=== PATIENT | female | born 1945 | race Caucasian/White ===

== ENCOUNTER 2016-12-31 19:33 | Emergency (ER) | payer MEDICARE, OTHER ==
[2016-12-31] MEDS ORDERED: predniSONE TAB* 20 MG PO ONE (23:29)
[2016-12-31] MEDS ORDERED: hydrOXYzine HCL TAB* 50 MG PO ONE (23:30)
[2016-12-31] MEDS ORDERED: Triamcinolone 0.5% OINT * 15 GM TUBE TOPICAL SCH (23:51)
[2017-01-01 00:05] VITALS: BP 159/69
[2017-01-01] MEDS ORDERED: Triamcinolone 0.5% OINT * 15 GM TUBE TOPICAL SCH (09:00)
--- NOTE | 2017-01-01 15:11 | UC ---
Skin Complaint HPI - HPI Summary HPI Summary: Patient arrives with CC of diffuse hives with pruritis x1 day. Hives are mainly located around the beltline and bilateral arms. She states she had them this morning and they spontaneously went away throughout the day. Denies changes of soap, laundry detergents, foods or outdoor activities. She uses all hypoallergenic products and is very conscientious of additives. She is allergic to benadryl. She comes today d/t not being able to sleep with the severe pruritus. Denies airway compromise or breathing difficulties. She denies any known allergies. - History of Current Complaint Chief Complaint: EDRashSkinAbscess Time Seen by Provider: 12/31/16 23:14 Stated Complaint: RASH/POSS ALLERGIC REACTION Hx Obtained From: Patient ?: No Onset/Duration: Sudden Onset Skin Exposure Onset/Duration: Hours Ago Timing: Intermittent Episodes Lasting: - several hours Pain Intensity: 0 Pain Scale Used: 0-10 Numeric Location: Diffuse Aggravating: Clothing Alleviating: Nothing Related History: Extremes of Age - Allergy/Home Medications Allergies/Adverse Reactions: Allergies Allergy/AdvReac Type Severity Reaction Status Date / Time Diphenhydramine Allergy paraddoxical Verified 12/31/16 19:39 [From Benadryl] reaction novacaine AdvReac Unknown Unknown Uncoded 12/31/16 19:39 Reaction Details Review of Systems Constitutional: Negative Skin: Rash - hives around beltline and bilateral arms Respiratory: Negative Cardiovascular: Negative Neurovascular: Negative Musculoskeletal: Negative Psychological: Negative All Other Systems Reviewed And Are Negative: Yes PMH/Surg Hx/FS Hx/Imm Hx Previously Healthy: Yes Cancer History Of: Denies: Breast Cancer - Surgical History Surgical History: Yes Surgery Procedure, Year, and Place: hysterectomy - Family History Known Family History: Positive: Unknown - Social History Occupation: Retired Lives: With Family Alcohol Use: None Substance Use Type: None Smoking Status (MU): Never Smoked Tobacco Have You Smoked in the Last Year: No Physical Exam Triage Information Reviewed: Yes Appearance: Well-Appearing, No Pain Distress, Well-Nourished Vital Signs: Initial Vital Signs Temp 99.2 F 12/31/16 19:39 Pulse 84 12/31/16 19:39 Resp 18 12/31/16 19:39 BP 147/69 12/31/16 19:39 Pulse Ox 99 12/31/16 19:39 Vital Signs Reviewed: Yes Eye Exam: Normal Eyes: Positive: Conjunctiva Clear ENT: Positive: Normal ENT inspection, Pharynx normal Dental Exam: Normal Neck exam: Normal Neck: Positive: Supple, Nontender, No Lymphadenopathy Respiratory Exam: Normal Respiratory: Positive: Chest non-tender, Lungs clear Cardiovascular Exam: Normal Cardiovascular: Positive: RRR Musculoskeletal Exam: Normal Neurological Exam: Normal Psychological Exam: Normal Psychological: Positive: Normal Response To Family Skin: Positive: Other - hives around beltline and bilateral arms Course/Dx - Course Course Of Treatment: Patient allergic to benadryl. Educated patient on treatment options. Given steroids for 4 days, hydroxazine and antihistamine ointment. Patient will follow up if symptoms continue and will return immiedately if SOB occurs - Differential Diagnoses - Skin Complaint Differential Diagnoses: Allergic Reaction, Contact Dermatitis, Drug Rash, Urticaria - Diagnoses Provider Diagnoses: urticaria/hives Discharge - Discharge Plan Condition: Stable Disposition: HOME Prescriptions: hydrOXYzine HCL TAB* [Atarax TAB*] 25 mg PO TID PRN #10 tab PRN Reason: Agitation predniSONE TAB* [Deltasone TAB*] 40 mg PO DAILY #6 tab Patient Education Materials: Hydroxyzine (By mouth), Urticaria (ED) Referrals: Kishore Dominguez MD [Primary Care Provider] - Additional Instructions: Take 40mg Prednisone on day 1 and day 2. Take 20mg Prednisone on day 3 and day 4. Take Hydroxyzine for itching and swelling. You may take this medication up to 3 times daily. Ointment to the area as needed for itchiness. If symptoms do not resolve with this regimen, please come back to ED for further evaluation. If you develop breathing symptoms, shortness of breath - come back to ED immediately.
--- NOTE | 2017-03-30 18:33 | PN ---
Progress Note - Progress Note Note: Constitutional: The patient denies fever, [place]. HEENT: Head: The patient denies headaches or dizziness. Eyes: The patient denies diplopia, blurry vision, eye pain, eye discharge, photophobia. Throat: The patient denies sore throats or hoarseness. Cardiovascular: The patient denies chest pain, palpitations, syncope, night cramps, or orthostasis. Respiratory: The patient denies cough, sputum production, hemoptysis, dyspnea, wheezing. Gastrointestinal: The patient denies odynophagia, dysphagia. Muscles: The patient denies myalgia, strain or weakness. Joints: The patient denies arthralgia and/or arthritis. Neurologic: The patient denies headache, loss of consciousness, or seizure.
== END 2017-01-01 00:02 | disposition home or self-care (01) ==
LOC: ED 19:33
DX: L50.9 Urticaria, unspecified (principal)
CPT/HCPCS: 99282; A9270-GY; J7512

== ENCOUNTER 2019-06-16 15:14 | Inpatient (IN) | payer MEDICARE, OTHER ==
[2019-06-16 17:16] LABS: ABS Eosinophils 0.1 10^3/ul (0-0.6); ABS Lymphocytes 0.8 10^3/ul (1.0-4.8); ABS Monocytes 0.5 10^3/ul (0-0.8); ABS Neutrophils 4.5 10^3/ul (1.5-7.7); Eosinophil % 1.3 %; Hematocrit 46 % (35-47); Hemoglobin 15.1 g/dL (12.0-16.0); Lymphocyte % 13.3 %; Mean Corpuscular HGB Conc 33 g/dL (31-36); Mean Corpuscular Hemoglobin 31 pg (27-31); Mean Corpuscular Volume 93 fL (80-97); Mean Platelet Volume 8.6 fL (7.4-10.4); Nucleated Red Blood Cells % 0.1; Platelet Count 219 10^3/uL (150-450); Red Blood Count 4.91 10^6 /uL (3.70-4.87); Red Cell Distribution Width 13 % (10-15); White Blood Count 5.8 10^3/uL (3.5-10.8)
--- NOTE | 2019-06-16 17:24 | ED ---
Dizziness - HPI Summary HPI Summary: A 73 y/o female accompanied by her presents to [facility] with a chief complaint of being disoriented for the past three days. She reports dizziness/ lightheadedness and occasional nausea. She denies any SOB or CP and normally says that she has had an irregular heart rate that has been intermittent for many yeas. Per she is confused "all the time" which is abnormal for her. Per , she has not been eating as well as normal. No falls at home but he thinks she has been walking w an unsteady gait. Denies infectious symptoms. Patient is normally very active walking up 2 miles a day. She denies a Hx of DM or HTN. - History Of Current Complaint Chief Complaint: EDDizziness Stated Complaint: DISORIENTED PER PT Time Seen by Provider: 06/16/19 17:03 Hx Obtained From: Patient, Family/Farmer General Timing: Constant Severity Initially: Mild Severity Currently: Mild Character: Dizzy Aggravating Factor(s): Nothing Alleviating Factor(s): Nothing Associated Signs And Symptoms: Positive: Nausea, Other: - disoriented. Negative : Chest Pain, SOB, Fever - Allergies/Home Medications Allergies/Adverse Reactions: Allergies Allergy/AdvReac Type Severity Reaction Status Date / Time diphenhydramine Allergy Unknown Verified 06/16/19 15:21 [From Benadryl] Reaction Details procaine [From Novocain] AdvReac Unknown Verified 06/16/19 19:34 Reaction Details PMH/Surg Hx/FS Hx/Imm Hx Endocrine/Hematology History: Denies: Hx Diabetes Cardiovascular History: Denies: Hx Hypertension Comment Only: Other Cardiovascular Problems/Disorders - hx murmur - Cancer History Hx Chemotherapy: No Hx Radiation Therapy: No - Surgical History Surgery Procedure, Year, and Place: hysterectomy Infectious Disease History: No Infectious Disease History: Denies: Traveled Outside the [place] in Last 30 Days - Family History Known Family History: Positive: Unknown - Social History Alcohol Use: None Substance Use Type: Reports: None Smoking Status (MU): Never Smoked Tobacco Have You Smoked in the Last Year: No Review of Systems Negative: Fever Negative: Chest Pain Negative: Shortness Of Breath Positive: Nausea Neurological: Other - positive: dizziness, disoriented, unsteady gait All Other Systems Reviewed And Are Negative: Yes Physical Exam - Summary Physical Exam Summary: Constitutional: Ederly female, NAD Skin: Warm, Dry HENT: Normocephalic; Atraumatic Eyes: Conjunctiva normal Neck: Musculoskeletal ROM normal neck. (-) JVD, (-) Stridor, (-) Nuchal rigidity Cardio: Rhythm regular, rate normal, Heart sounds normal; Intact distal pulses; Radial pulses are 2+ and symmetric. (-) Murmur Pulmonary/Chest wall: Effort normal. (-) Respiratory distress, (-) Wheezes, (-) Rales Abd: Soft, (-) tenderness, (-) Distension, (-) Guarding, (-) Rebound Musculoskeletal: (-) Edema Lymph: (-) Cervical adenopathy Neuro: Alert, Oriented to person and place, not time. CN 2-12 grossly intact. strength 5/5 BUE BLE. SILT. No dysmetria. Gait slow slightly unsteady Psych: Mood and affect Normal Triage Information Reviewed: Yes Vital Signs On Initial Exam: Initial Vitals Temp Pulse Resp BP Pulse Ox 98.2 F 79 18 145/81 96 06/16/19 15:17 06/16/19 15:17 06/16/19 15:17 06/16/19 15:17 06/16/19 15:17 Vital Signs Reviewed: Yes - Pinckney Coma Scale Best Eye Response: 4 - Spontaneous Best Motor Response: 6 - Obeys Commands Best Verbal Response: 4 - Confused Coma Scale Total: 14 Diagnostics - Vital Signs Vital Signs Temp Pulse Resp BP Pulse Ox 06/16/19 17:04 63 13 200/84 99 06/16/19 17:03 47 24 97 06/16/19 15:17 98.2 F 79 18 145/81 96 - Laboratory Lab Results: Lab Results 06/16/19 Range/Units 17:09 WBC 5.8 (3.5-10.8) 10^3/uL RBC 4.91 H (3.70-4.87) 10^6 /uL Hgb 15.1 (12.0-16.0) g/dL Hct 46 (35-47) % MCV 93 (80-97) fL MCH 31 (27-31) pg MCHC 33 (31-36) g/dL RDW 13 (10-15) % Plt Count 219 (150-450) 10^3/uL MPV 8.6 (7.4-10.4) fL Neut % (Auto) 76.9 % Lymph % (Auto) 13.3 % Grainger % (Auto) 8.0 % Eos % (Auto) 1.3 % Baso % (Auto) 0.5 % Absolute Neuts (auto) 4.5 (1.5-7.7) 10^3/ul Absolute Lymphs (auto) 0.8 L (1.0-4.8) 10^3/ul Absolute Monos (auto) 0.5 (0-0.8) 10^3/ul Absolute Eos (auto) 0.1 (0-0.6) 10^3/ul Absolute Basos (auto) 0.0 (0-0.2) 10^3/ul Absolute Nucleated RBC 0.0 10^3/ul Nucleated RBC % 0.1 Result Diagrams: 06/17/19 05:15 06/17/19 05:15 Lab Statement: Any lab studies that have been ordered have been reviewed, and results considered in the medical decision making process. - Radiology CXR Radiology Interpretation Completed By: Radiologist Summary of Radiographic Findings: Stigmata of obstructive lung disease. No acute pulmonary or cardiac process evident. ED physician has reviewed this imaging report. - CT Brain CT Interpretation Completed By: Radiologist Summary of CT Findings: 1. No acute intracranial pathology. 2. Other chronic findings, as above. ED physician has reviewed this imaging report. - EKG 17:47 Cardiac Rate: NL - 72 bpm EKG Rhythm: Sinus Rhythm Summary of EKG Findings: EKG at 17:42 reveals normal sinus rhythm at 72 bpm, LBBB. 16:42 Cardiac Rate: NL - 64 bpm EKG Rhythm: Sinus Rhythm Summary of EKG Findings: EKG at 16:42 reveals normal sinus rhythm at 64 bpm, LBBB. Re-Evaluation - Re-Evaluation First Eval Comment: CT negative, patient having episodes of tachycardia on the monitor, we' ll discuss with cardiology. Plan to admit to medicine. Dizzy Course/Dx - Course Course Of Treatment: 73 y/o F p/w AMS and dizziness. Given that this patient has normal O2, BG, hypoxia and hypoglycemia/DKA less likely. DDx still includes : Arrhythmia, infectious symptoms electrolyte abnl, thyroid issues, infection/ sepsis, uremia, trauma, encephalopathy/encephalitis, psych, stroke. Will check labs, head ct, urine, ekg, cxr. Reassess. Dizziness ddx: Differential diagnosis includes: Cardiac causes - EKG with a left bundle branch block unsure if new, check troponin. Reported history if arrhythmia but she is not quite sure what it is. Electrolyte disturbances - will check CMP. Anemia - will check CBC. Posterior stroke/tia - will get CT head, if remaining workup negative consider MRI. No dysmetria neuro exam however does have slightly unsteady gait. Vertigo: differential includes Menniere's - no tinnitis, not lasting hours, BPPV - not positional or lasting minutes, labyrinthitis - no h/o infectious symptoms, no tinnitus - Diagnoses Provider Diagnoses: Dizziness, Altered mental status - Provider Notifications Discussed Care Of Patient With: Gino Quesada Time Discussed With Above Provider: 17:50 Instructed by Provider To: Other - D/w Dr. Quesada re: episodes of tachycardia. He looked at the stirp and thinks that it is probably more constent with an atrial tachycardia Discharge - Sign-Out/Discharge Documenting (check all that apply): Patient Departure - admit Patient Received Moderate/Deep Sedation with Procedure: No - Discharge Plan Condition: Fair Disposition: ADMITTED TO [facility] - Billing Disposition and Condition Condition: FAIR Disposition: Admitted to [facility] - Attestation Statements Document Initiated by Chas: Yes Documenting Scribe: Neri Reveles Provider For Whom Chas is Documenting (Include Credential): Alek Raya MD Scribe Attestation: I, Neri Reveles, scribed for Alek Raya MD on 06/17/19 at 1329. Scribe Documentation Reviewed: Yes Provider Attestation: The documentation as recorded by the Neri abad accurately reflects the service I personally performed and the decisions made by me, Alek Raya MD Status of Scribe Document: Viewed Consult Consult: At 18:[address] Khan, who accepted the patient for admission.
[2019-06-16 17:32] LABS: ALT 10 U/L (7-52); AST 22 U/L (13-39); Albumin 4.3 g/dL (3.2-5.2); Albumin/Globulin Ratio 1.5 (1-3); Alkaline Phosphatase 43 U/L (34-104); Anion Gap 8 mmol/L (2-11); BUN/Creatinine Ratio 15.6 (8-20); Blood Urea Nitrogen 15 mg/dL (6-24); CO2 Carbon Dioxide 26 mmol/L (22-32); Calcium 9.9 mg/dL (8.6-10.3); Chloride 107 mmol/L (101-111); EGFR African American 68.7 (>60); EGFR Non-African American 56.8 (>60); Globulin 2.9 g/dL (2-4); Glucose 103 mg/dL (70-100); Magnesium 2.1 mg/dL (1.9-2.7); Potassium 3.9 mmol/L (3.5-5.0); Sodium 141 mmol/L (135-145); Total Protein 7.2 g/dL (6.4-8.9)
[2019-06-16 17:34] LABS: Troponin I 0.01 ng/mL (<0.04)
[2019-06-16 17:57] LABS: TSH (Thyroid Stimulating Horm) 2.08 mcIU/mL (0.34-5.60)
[2019-06-16 18:52] LABS: Urine Appearance Clear; Urine Bacteria Absent (Absent); Urine Bilirubin Negative (Negative); Urine Blood Negative (Negative); Urine Color Yellow; Urine Glucose Negative (Negative); Urine Ketones 1+ (Negative); Urine Nitrite Negative (Negative); Urine Protein Negative (Negative); Urine Red Blood Cell Trace(0-2/hpf) (Absent); Urine Specific Gravity 1.012 (1.010-1.030); Urine Squamous Epithelial Cell Present (Absent); Urine Urobilinogen Negative (Negative); Urine White Blood Cell 1+(6-10/hpf) (Absent)
[2019-06-16] MEDS ORDERED: Acetaminophen TAB* 325 MG PO PRN (19:19)
[2019-06-16] MEDS ORDERED: Ondansetron INJ* 2 MG/ML VIAL IV PRN (19:19)
[2019-06-16 19:49] LABS: C Reactive Protein < 1.00 mg/L (<8.01)
[2019-06-16] MEDS ORDERED: amLODIPine TAB* 5 MG PO ONE (19:53)
[2019-06-16] MEDS ORDERED: NS 0.9% 1000 ML** 1,000 ML IV SCH (20:00)
[2019-06-16] MEDS ORDERED: Enoxaparin(*) 40 MG/0.4 ML SYR SUBCUT SCH (20:00)
--- NOTE | 2019-06-16 23:33 | HP ---
CC: Dr. Kishore Dominguez * ADMISSION HISTORY AND PHYSICAL: DATE OF ADMISSION: 06/16/19 PRIMARY CARE PROVIDER: Dr. Kishore Dominguez. MY ATTENDING WHILE IN THE HOSPITAL: Dr. Yaritza Yuen.* (DICTATED BY SHERI CAPPS) CHIEF COMPLAINT: Dizziness, malaise x3 days. HISTORY OF PRESENT ILLNESS: Ms. Avelar is a 73-year-old female with past medical history significant for mild cognitive impairment and borderline hypertension, who presents to the emergency department after she was feeling in her normal state of health Thursday evening and they will walk 2 miles, had normal appetite, and normal memory, which is severely limited in the short-term particularly for her at baseline and then on Thursday morning, she woke up, felt very fatigued, had no appetite, was unable to tolerate any more than sips of water, staggering around when attempting to walk and feeling she always needed to lie down. The patient never had episodes like this before. The patient had no fevers, chills, abdominal pain, diarrhea, pain with urination. The patient denied any vertigo, just felt unsteady on her feet and stated that she felt disoriented. All the history is from her that she remembers nothing from it. The patient has a history of irregular heart beat, but never diagnosed with any specific arrhythmia. The patient has no knowledge of having a left bundle-branch block. The patient has no chest pain except did not pass out. The patient had no palpitations. The patient did not improve over the course of the next 2 days. On the morning of 06/16/19, the patient's activated EMS. In the ambulance, the patient had a 12-beat run of an irregular rhythm with normal complexes for her, which was self limited. The patient was discovered to have a new left bundle- branch block. Her most recent telemetry monitoring was from an endoscopy in 2011, which showed narrow complexes without left bundle-branch block. The patient, of note, no tick bites, no new rashes, no particular joint pain. In the emergency department, the patient is feeling better, the patient feels hungry. The patient however does still have dizziness with ambulation. There is no increased frequency in urination, no changes in her vision, no headaches, no neck stiffness, no incontinence of urination. In the emergency department, the patient was found to have negative urine, relatively unremarkable vital signs, possibly consistent with mild dehydration and we were asked to consider the patient for admission to hospital due to altered mental status and dizziness. PAST MEDICAL HISTORY: Mild cognitive impairment, hypertension, left ankle avulsion fracture, right patellar fracture. PAST SURGICAL HISTORY: Hysterectomy and ankle surgery. MEDICATIONS: None. ALLERGIES: DEMEROL. FAMILY HISTORY: The patient's father of [place]. The patient's mother of cancer, unknown type. SOCIAL HISTORY: The patient never smoked, does not drink, does not use illicit drugs. The patient used to work in a daycare. The patient is and has 5 adopted children. REVIEW OF SYSTEMS: A 14-point review of systems was reviewed and is negative except as above in the HPI. PHYSICAL EXAMINATION GENERAL: The patient is a 73-year-old female, who appears stated age and sitting comfortably in bed, in no acute distress. VITAL SIGNS: At the time of evaluation, temperature 98.2, pulse rate 50, respiratory rate 12, oxygen saturation 98%, blood pressure 183/96. HEENT: Head: Normocephalic, atraumatic. Sclerae anicteric. No conjunctival injection. Nasal mucosa moist. Oral mucosa moist. No pharyngeal erythema, discharge, or exudate. NECK: Supple, nontender. No lymphadenopathy. No carotid bruits auscultated. No JVD. RESPIRATORY: Clear to auscultation bilaterally. No wheezes, rales, or rhonchi. Good air exchange bilaterally. CARDIAC: Regular rate and rhythm. No clicks, murmurs, gallops, or rubs. Pulses are 2+ in the bilateral dorsalis pedis, posterior tibialis, and radial areas. ABDOMEN: Soft, nontender, nondistended. Bowel sounds present and normoactive in all 4 quadrants. No hepatosplenomegaly. No abdominal bruits auscultated. No hepatojugular reflux. GENITOURINARY: No suprapubic or CVA tenderness. NEURO: Possible very slight right-sided facial droop affecting the forehead, eye, and mouth. Cerebellar testing performed without difficulty. The patient has slight gait abnormality, wherein she takes a small step with her right foot and then enlarge with her left. The patient has a negative Romberg's sign, no drift, no nystagmus. [id number] performed without difficulty. Finger tap symmetrical. Strength preserved 5/5 in bilateral upper and lower extremities distally, proximally no definite sensation to light touch. Alert and oriented to self. PSYCHIATRIC: Pleasant and cooperative. SKIN: Clean, dry, and intact. No rash. DIAGNOSTIC STUDIES/LAB DATA: White blood cell count 5.8, hemoglobin 15.1, platelet count 219. Sodium 141, potassium 3.9, chloride 107, carbon dioxide 26 , BUN 15, creatinine 0.96, glucose 103, lactic acid 1.2, calcium 9.9, magnesium 2.1, bilirubin 0.6. AST 22, ALT 10, alkaline phosphatase 43. Troponin I 0.01. Total protein 7.2, albumin 4.3, globulin 2.9. TSH 2.08. Urine, yellow, clear, 1+ ketones, trace leukocyte esterase, 1+ white blood cells, squamous epithelial cells present, otherwise unremarkable. Studies: EKG shows left bundle-branch block. Normal sinus rhythm. Difficult to interpret ST segment elevation or depression. No P wave morphology. Possible left atrial enlargement. No previous exam to compare. Chest x-ray read as some mild obstructive lung disease, no acute cardiopulmonary disease. Brain CT read as no acute intracranial pathology, prominence of ventricles and sulci and/or cisterns likely associated to parenchymal volume loss, Stigmata of small vessel ischemic change. ASSESSMENT AND PLAN: Impression: Ms. Avelar is a 73-year-old female with past medical history significant for mild cognitive impairment and hypertension for which she is on no medications who presents to the emergency department with 3 days of malaise, disorientation, and dizziness. The patient will be admitted to the hospital for supportive care as well as TIA evaluation. 1. Disorientation, dizziness. This will be a markedly atypical pattern for a TIA, however, the patient has no discernible neurologic deficits on exam right now except for possible right-sided facial droop, which is very subtle and may not be of any clinical significance. The patient has new left bundle-branch block but no bradycardia. The patient is outdoors frequently and has nonspecific symptoms, which could be indicative of Lyme disease. A tick borne panel has been sent. An MRI will be done of patient's head. Echo will be done for a bubble study. The patient will not be started on any treatment at this time given the lack of definitive neurologic deficits. The patient's blood pressure is high. The patient will be started on blood pressure medications tonight as it has been 3 days since the onset of her symptoms. The patient is not eligible for any sort of TPA therapy at this time. Lipid profile and hemoglobin A1c will be checked. 2. Hypertension. Amlodipine as above. 3. Dementia. Supportive care. 4. FEN. The patient will have a regular unrestricted diet and have gentle fluids for probable dehydration given her poor oral intake. 5. Disposition: The patient is admitted for observation to the hospital. 6. DVT prophylaxis. Lovenox subcu. TIME SPENT: Approximately 60 minutes was spent on the admission of this patient , 30 of which was spent [id number] with the patient obtaining history and physical and discussing treatment plan. This plan was discussed with my attending, Dr. Yaritza Yuen, and she is in agreement. SHERI CAPPS [id number]/[facility] #: [id number] ROHINI
[2019-06-17 05:34] LABS: ABS Basophils 0.1 10^3/ul (0-0.2); ABS Eosinophils 0.2 10^3/ul (0-0.6); ABS Monocytes 0.6 10^3/ul (0-0.8); ABS Neutrophils 4.3 10^3/ul (1.5-7.7); Eosinophil % 2.5 %; Hematocrit 44 % (35-47); Hemoglobin 14.5 g/dL (12.0-16.0); Lymphocyte % 17.1 %; Mean Corpuscular HGB Conc 33 g/dL (31-36); Mean Corpuscular Hemoglobin 31 pg (27-31); Mean Corpuscular Volume 92 fL (80-97); Mean Platelet Volume 8.7 fL (7.4-10.4); Nucleated Red Blood Cells % 0.1; Platelet Count 212 10^3/uL (150-450); Red Blood Count 4.74 10^6 /uL (3.70-4.87); Red Cell Distribution Width 13 % (10-15); White Blood Count 6.1 10^3/uL (3.5-10.8)
[2019-06-17 05:56] LABS: Anion Gap 7 mmol/L (2-11); Blood Urea Nitrogen 15 mg/dL (6-24); C Reactive Protein < 1.00 mg/L (<8.01); CO2 Carbon Dioxide 27 mmol/L (22-32); Calcium 9.6 mg/dL (8.6-10.3); Chloride 107 mmol/L (101-111); Cholesterol 203 mg/dL; EGFR Non-African American 62.8 (>60); Glucose 96 mg/dL (70-100); HDL Cholesterol 53.8 mg/dL; LDL Cholesterol 135 mg/dL; Magnesium 2.1 mg/dL (1.9-2.7); Potassium 3.8 mmol/L (3.5-5.0); Sodium 141 mmol/L (135-145); Triglycerides 73 mg/dL
--- NOTE | 2019-06-17 11:29 | ECHO ---
*[facility]* [place] [address] Fax #: [phone] Transthoracic Echocardiogram Patient: Leta Avelar : 1945 Study Date: 06/17/2019 Age: 73 Gender: F HR: 57 bpm Height: 66 in /167.6 cm BSA: 1.66 m^2 Weight: 129.7 lb /59 kg BMI: 21 kg/m^2 *[place] Former: * Lamar Diaz [facility] *Referring Physician: * Kaleb Hair *Reading Physician: * Gino Quesada MD Indications: TIA. History: Left bundle branch block. Dementia. Risk factors: Hypertension. Conclusions Summary: - Left ventricle: The cavity size is normal. Wall thickness is mildly to moderately increased. Systolic function is normal. The estimated ejection fraction is 60-65%. Wall motion is normal; there are no regional wall motion abnormalities. - Right ventricle: The cavity size is normal. Systolic function is normal. Systolic pressure is within the normal range. - Ventricular septum: The interventricular septum appears dyssynchronous consistent with LBBB - Left atrium: The atrium is mildly dilated. - Atrial septum: A PFO is demonstrated by color Doppler and agitated saline contrast. - No signficant valvular abnormalities noted. Recommendations: No prior studies for comparsion at time of interpretation. Study data: Transthoracic echocardiogram. Procedure: Transthoracic echocardiography was performed. Image quality was fair. A bubble study was performed. Complete 2D, spectral Doppler, and color flow Doppler. Location: Bedside. Patient status: Inpatient. Patient room number: 438. Rhythm: Bradycardia. Findings Left ventricle: The cavity size is normal. Wall thickness is mildly to moderately increased. Systolic function is normal. The estimated ejection fraction is 60-65%. Wall motion is normal; there are no regional wall motion abnormalities. Doppler parameters are consistent with abnormal left ventricular relaxation (grade 1 diastolic dysfunction). Right ventricle: The cavity size is normal. Systolic function is normal. Systolic pressure is within the normal range. Ventricular septum: The interventricular septum appears dyssynchronous consistent with LBBB Left atrium: The atrium is mildly dilated. Right atrium: The atrium is normal in size. Atrial septum: There is a patent foramen ovale. A PFO is demonstrated by color Doppler and agitated saline contrast. Bubble study image 83. Mitral valve: The leaflets are mildly thickened. There is no evidence of stenosis. There is trace to mild regurgitation. Aortic valve: The valve is trileaflet. The leaflets are mildly thickened. There is no evidence of stenosis. There is mild regurgitation. Tricuspid valve: The leaflets are normal thickness. There is no evidence of stenosis. There is mild regurgitation. Pulmonic valve: The leaflets are normal thickness. There is no evidence of stenosis. There is trace regurgitation. Aorta: Ascending aorta: The ascending aorta is appears normal. The aortic root appears normal. The aortic arch appears normal. Pericardium: There is no significant pericardial effusion. Pulmonary arteries: The main pulmonary artery is normal-sized. Systolic pressure is within the normal range. Systemic veins: Inferior vena cava: The vessel is normal in size. There is (>= 50%) respiratory change in the IVC dimension. Measurements Left ventricle Value Ref Aortic valve Value Ref ISAI, LAX (L) 3.3 cm 3.8 - Keerthi diam, S (L) 1.6 cm 1.9 - 2.7 5.2 Peak v, S 1.39 m/sec --------- ESD, LAX 2.8 cm 2.2 - VTI, S 25.3 cm --------- 3.5 Mean grad, S 3.9 mm Hg --------- FS, LAX (L) 14 % 27 - 45 Peak grad, S 7.8 mm Hg --------- PW, ED, LAX (H) 1.2 cm 0.6 - LVOT/AV, VTI ratio 0.9 --------- 0.9 FARAZ, VTI 2.56 cm^2 --------- FS (L) 14 % 27 - 45 FARAZ, Vmax 2.49 cm^2 --------- PW, ED (H) 1.2 cm 0.6 - AR peak v 3.31 m/sec --------- 0.9 AR decel time 1931 ms --------- E', lat keerthi, TDI (L) 6.0 cm/sec >=10.0 AR PHT 560 ms --- ------ E/e', lat keerthi, TDI 10 -------- AR peak grad 44 mm Hg ------ --- LVOT Value Ref Mitral valve Value Ref Diam, S 1.98 cm -------- Peak E 0.59 m/sec --------- Area 3.1 cm^2 -------- Peak A 1.04 m/sec --------- Peak luca, S 1.15 m/sec -------- Decel time 275 ms --------- VTI, S 22.7 cm -------- Peak E/A ratio 0.57 --------- Peak grad, S 5 mm Hg -------- Mean grad, S 3 mm Hg -------- Pulmonic valve Value Ref Peak v, S 1.1 m/sec --------- Ventricular septum Value Ref Peak grad, S 4.8 mm Hg --------- IVS, ED (H) 1.2 cm 0.6 - 0.9 Tricuspid valve Value Ref TR peak v 2.3 m/sec <=2.8 Right ventricle Value Ref Peak RV-RA grad, S 21 mm Hg --------- AW thickness, ED (H) 0.6 cm 0.1 - 0.5 Aortic root Value Ref ISAI, LAX 4.2 cm -------- Root diam 2.9 cm <3.9 ISAI minor ax, A4C (H) 4.0 cm 1.9 - mid 3.5 Ascending aorta Value Ref Pressure, S 24 mm Hg -------- AAo AP diam, S 3.4 cm --------- AAo peak v 0.83 m/sec --------- Left atrium Value Ref LA ID 3.3 cm -------- Decending aorta Value Ref SI dim ES, LAX 3.3 cm -------- Chely peak luca 0.83 m/sec --------- ML dim, A4C 4.5 cm -------- SI dim, A4C 4.7 cm -------- Pulmonary artery Value Ref Vol, ES, 2-p 52 ml -------- Pressure, S 19.2 mm Hg --------- Vol/bsa, ES, 2-p 31 ml/m^2 16 - 34 Inferior vena cava Value Ref Right atrium Value Ref Diam 1.6 cm --------- SI dim, ES 4.0 cm 3.4 - 5.3 ML dim, ES, A4C 3.5 cm 2.6 - 4.4 SI dim, ES, A4C 4.2 cm 3.4 - 5.3 SI dim/bsa, ES, A4C 2.5 cm/m^2 1.9 - 3.1 Estimated RAP 3 mm Hg -------- Legend: (L) and (H) elana values outside specified reference range. Prepared and electronically signed by Gino Quesada MD 06/17/2019 10:54
--- NOTE | 2019-06-17 15:57 | PN ---
Subjective Date of Service: 06/17/19 Interval History: Pt is feeling better today than yesterday. She does not know if her has been in yet. She denies any pain or SOB. Objective Active Medications: Acetaminophen (Tylenol Tab*) 650 mg PO Q6H PRN PRN Reason: MILD PAIN or TEMP > 100.4 Enoxaparin Sodium (Lovenox(*)) 40 mg SUBCUT Q24H ANKUSH Last Admin: 06/16/19 21:33 Dose: Not Given Ondansetron HCl (Zofran Inj*) 4 mg IV Q6H PRN PRN Reason: NAUSEA Vital Signs - 8 hr 06/17/19 08:00 Respiratory 20 Rate Oxygen Devices in Use Now: None Appearance: Elderly female sitting up in bed, NAD Eyes: No Scleral Icterus Ears/Nose/Mouth/Throat: Mucous Membranes Moist Respiratory: Symmetrical Chest Expansion and Respiratory Effort, Clear to Auscultation Cardiovascular: NL Sounds; No Murmurs; No JVD, RRR, No Edema Abdominal: NL Sounds; No Tenderness; No Distention Extremities: No Clubbing, Cyanosis Skin: No Nodules or Sclerosis Neurological: - - slightly confused Result Diagrams: 06/17/19 05:15 06/17/19 05:15 Additional Lab and Data: Lab Results 06/16/19 Range/Units 17:09 WBC 5.8 (3.5-10.8) 10^3/uL RBC 4.91 H (3.70-4.87) 10^6 /uL Hgb 15.1 (12.0-16.0) g/dL Hct 46 (35-47) % MCV 93 (80-97) fL MCH 31 (27-31) pg MCHC 33 (31-36) g/dL RDW 13 (10-15) % Plt Count 219 (150-450) 10^3/uL MPV 8.6 (7.4-10.4) fL Neut % (Auto) 76.9 % Lymph % (Auto) 13.3 % [place] % (Auto) 8.0 % Eos % (Auto) 1.3 % Baso % (Auto) 0.5 % Absolute Neuts (auto) 4.5 (1.5-7.7) 10^3/ul Absolute Lymphs (auto) 0.8 L (1.0-4.8) 10^3/ul Absolute Monos (auto) 0.5 (0-0.8) 10^3/ul Absolute Eos (auto) 0.1 (0-0.6) 10^3/ul Absolute Basos (auto) 0.0 (0-0.2) 10^3/ul Absolute Nucleated RBC 0.0 10^3/ul Nucleated RBC % 0.1 Assess/Plan/Problems-Billing Ms Avelar is a 73 yo F who has a h/o HTN and mild cognitive impairment who presented to the ER with c/o dizziness and malaise x 3 days and was admitted for TIA work up. - Patient Problems (1) CVA (cerebral vascular accident) Current Visit: Yes Status: Acute Code(s): I63.9 - CEREBRAL INFARCTION, UNSPECIFIED SNOMED Code(s): 747888768 Comment: Pt has MRI c/w cardioembolic CVA. Pt has PFO on echo. Will get LE dopplers to r/o DVT. There is a high likelihood that she has amyloid angiopathy and because of this anticoagulation is contraindicated. ? if she should be on ASA alone but even this poses a risk of bleeding. Await further recommendations from Dr. Ramos. (2) Cerebral amyloid angiopathy Current Visit: Yes Status: Acute Code(s): E85.4 - ORGAN-LIMITED AMYLOIDOSIS ; I68.0 - CEREBRAL AMYLOID ANGIOPATHY SNOMED Code(s): 628733837 Comment: New dx based on MRI findings. (3) HTN (hypertension) Current Visit: Yes Status: Acute Code(s): I10 - ESSENTIAL (PRIMARY) HYPERTENSION SNOMED Code(s): 20780779 Comment: BP is under good control on amlodipine 5mg daily. (4) Mild cognitive impairment Current Visit: Yes Status: Acute Code(s): G31.84 - MILD COGNITIVE IMPAIRMENT , SO STATED SNOMED Code(s): 934966982 Comment: Pt is confused but unclear how close she is at baseline currently. (5) DVT prophylaxis Current Visit: Yes Status: Acute Code(s): Z29.9 - ENCOUNTER FOR PROPHYLACTIC MEASURES, UNSPECIFIED SNOMED Code(s): 722624779 Comment: SCDs (6) Full code status Current Visit: Yes Status: Acute Code(s): Z78.9 - OTHER SPECIFIED HEALTH STATUS SNOMED Code(s): 663501099
[2019-06-17] MEDS: Iohexol 350* (CONTRAST) 500 ML MDV IV ONE ×2 (16:59→17:39)
[2019-06-17] MEDS ORDERED: Atorvastatin* 10 MG TAB PO SCH (17:00)
[2019-06-17] MEDS: Aspirin 81 mg CHEW TAB* 81 MG TAB.CHEW PO SCH (17:56)
--- NOTE | 2019-06-17 19:03 | CONS ---
CC: Dr. Kishore Dominguez* CONSULTATION REPORT: DATE OF CONSULT: 06/17/19 DATE OF ADMISSION: 06/16/19 PRIMARY CARE PHYSICIAN: Dr. Kishore Dominguez. REASON FOR CONSULTATION: Stroke. HISTORY OF PRESENT ILLNESS: Ms. Avelar is a rustam 73-year-old female with a past medical history significant for dementia and hypertension who presents to the hospital with several day history of worsening mental status and dizziness. The patient is very active, normally walks daily over 2 miles. Her is at the bedside to help provide some additional history. He reports that for quite some time her short-term memory has been slipping, and currently , she has a hard time remembering things that were recently said, so she is normally not oriented at baseline. On Thursday of this week, the patient developed sudden onset of worsening memory problems. She woke up and was very tired. She did not eat. She was only taking sips of water. At the time, her notes that she was staggering when she was walking and she constantly stated that she wanted to go back to bed. The patient noted no spinning in the room, no nausea or vomiting, just felt very off balance. He also states that she was much more disoriented. There was no reported facial droop. No reported focal numbness, tingling, or weakness. No headaches. No chest pain or shortness of breath. No palpitations. She has otherwise been in her usual state of health. The patient apparently has a history of PVCs in the past, but the patient and her specifically deny any history of atrial fibrillation. Because she did not improve over the last few days, she finally decided to come to the ER. In the ER, she had a 12-beat run of irregular rhythm , apparently not AFib, and discovered to have a left bundle-branch block. Per the H and P, she had an endoscopy in 2011 which did show narrow complexes without a left bundle-branch block. In the ER, the patient remained dizzy and had some difficulty walking. Based on that, she was admitted for further evaluation. PAST MEDICAL HISTORY: Includes as noted above and she also has a history of a left ankle fracture and right patellar fracture. She has had multiple miscarriages in the past. No history of blood clots. No history of bleeding disorders, although she notes that a paternal uncle had hemophilia. PAST SURGICAL HISTORY: Hysterectomy and ankle surgery. MEDICATIONS: At home, she does not take any medications. ALLERGIES: She is allergic to PROCAINE, DIPHENHYDRAMINE, and DEMEROL. FAMILY HISTORY: Significant for the bleeding disorder as noted, hemophilia in a paternal uncle. Her father had coronary artery disease with an GA and her mother had cancer. SOCIAL HISTORY: No tobacco, alcohol, or drug use. She worked in a daycare. She has adopted 5 children. Her is at the bedside. REVIEW OF SYSTEMS: A 14 organ systems as noted above, otherwise negative. PHYSICAL EXAM: Vital Signs: 98.1 afebrile, pulse in the 50s to 70s, reparatory rate 16 to 20, O2 sat 97% to 99%, blood pressure 128/55 to 126/53 to 147/76. On telemetry, she has had no evidence of atrial fibrillation, although she continues to have some abnormal beats and rhythm at times. In general, she is a well- nourished, well-developed female. She is thin, in no acute distress , sitting in her hospital chair, pleasant, well dressed, well groomed. HEENT: She is normocephalic, atraumatic. Sclerae are anicteric. Mucous membranes are moist. Oropharynx is clear. Nares are patent. Neck is supple. No thyromegaly. No carotid bruits. No meningismus. Chest: Clear to auscultation bilaterally. Cardiovascular is regular rate and rhythm without murmurs. Abdomen is nontender, nondistended. Extremities: No clubbing, cyanosis, or edema. Her skin is warm and dry. On neurologic exam, she is awake , alert. She is oriented to person and [facility]. Her speech is fluent. There is no dysarthria. Repetition is intact. Recall is somewhat impaired. Mood is dysthymic. Affect, mood congruent. Cranial Nerves: II through XII, pupils are equally round and reactive to light and accommodation. Extraocular muscles are intact without nystagmus. No ptosis noted. Visual swan are full to confrontation. Facial sensation is intact bilaterally. Face is symmetric bilaterally. Hearing is intact bilaterally. Palate raises symmetrically. Tongue is midline. Motor Exam: She spontaneously moves all extremities antigravity 5/5 throughout with good tone and bulk. No drift. Sensation is grossly intact to light touch and pinprick in the upper and lower extremities without any focal deficits. DTRs were 1+ at the biceps, brachioradialis; 1+ at the patella; absent at the ankles. Equivocal Babinski's. Rapid alternating movements and jtzros-kq-sece were generally intact. She had no dysmetria or dysdiadochokinesia with [id number]. She was able to do heel-to- angulo without difficulty. There is no resting tremor. She had a very subtle left intention tremor with [id number]. Gait: She was able to stand, minimal sway with eyes open and close, slightly off-balance, and wide-based. DIAGNOSTIC STUDIES/LAB DATA: She had a brain CT done on admission. Films reviewed. Impression: No acute intracranial pathology. She has a history of left thalamic chronic lacunar infarct, hypodensities of the periventricular and deep subcortical white matter, prominence of the ventricles. She had an echocardiogram done, results: She had left ventricular cavity size that was normal, wall thickness mildly to moderately increased, systolic function is normal, estimated ejection fraction 60% to 65%, no regional wall motion abnormalities. Right ventricle cavity is normal size. Interventricular septum appears dyssynchronous, consistent with left bundle branch. She has a PFO demonstrated by color Doppler and agitated saline contrast. No significant valvular abnormalities noted. She had telemetry as noted above. Brain MRI: I did review the films. I spoke with the reading radiologist, Dr. Baig. It shows multiple acute hemorrhages bilaterally in the left thalamus, medial left occipital lobe, left frontal, centrum semiovale, and left cerebral hemisphere. Also, small infarcts seen in the right frontal, right temporal lobes, and left internal capsule. I agree with the findings. There are also several chronic microhemorrhages predominating in the parieto-occipital regions. There is confluence of T2/FLAIR hyperintensity, old lacunar infarct in the posterior left upper lobe. She has punctate chronic microangiopathic predominantly in the parieto- occipital regions bilaterally consistent with cerebral amyloid angiopathy. CT angiogram of the brain is pending. Lab work includes a CBC with diff that is normal. Complete metabolic profile with a triglyceride of 73, cholesterol 203, LDL 135, HDL 53.8. TSH of 2.08. Total bili of 1.60. Hemoglobin A1c of 5.4. Lactic acid 1.2. Complete metabolic profile otherwise normal. C-reactive protein less than 1. ASSESSMENT AND PLAN: Ms. Avelar is 73-year-old female with a history of reported mild cognitive impairment versus dementia; a history of borderline hypertension, not on any medications; a history of an abnormal heart rhythm, reportedly no atrial fibrillation in the past, left bundle-branch block, who presents to the hospital with acute onset of dizziness and confusion, worse than baseline, on Thursday and symptoms did not improve dramatically, came to the hospital yesterday for further evaluation. Subsequent CT scan showed some chronic changes and microvascular changes, but MRI of the brain shows multiple acute to subacute infarcts consistent with an embolic phenomenon. She also has what appears to be amyloid angiopathy. I reviewed the films and spoke with the radiologist. She has microangiopathic changes as well as some chronic small microhemorrhages as well, all consistent with amyloid angiopathy. In addition, she has a patent foramen ovale on her echocardiogram. She presents with a difficult clinical dilemma. She has had multiple embolic strokes in several vascular territories concerning for an embolic source. The plan is to check a lower extremity Dopplers to look for any evidence of clots which could be paradoxical in nature. She notes a history of miscarriages, but no other bleeding disorders. Her uncle had a history of hemophilia. My suspicion for paradoxical embolus is low. She also has a history of abnormal heart arrhythmia , but no reported history of atrial fibrillation. We will continue her on telemetry and she will likely need outpatient long-term monitoring to look for evidence of atrial fibrillation, which could alter her management. She has some risk factors including borderline hypertension and some hyperlipidemia, and complicating the picture is the fact that I do suspect that she has amyloid angiopathy. Amyloid angiopathy is typically associated with an increased risk of intracerebral hemorrhage. In the setting of either atrial fibrillation or ischemic strokes, the use of anticoagulation is controversial. I did do a review of the literature and it appears with more than 5 microvascular lesions that there is some benefit to short-term aspirin use for the first year, subsequently slowly weaning off. The risk of intracerebral hemorrhage rises after the second year with a much higher risk over 5 years. I think at this point, after discussing the risks and benefits of treatment versus nontreatment , starting a baby aspirin is appropriate. With no evidence of atrial fibrillation, I would not even consider full strength anticoagulation. In the setting of cerebral angiopathy, I would be hard-pressed to start full strength anticoagulation, although there is limited data on this. In addition, there is competing data regarding the use of statins in cerebral angiopathy. Her LDL cholesterol is 135. I think it is okay to start a low-dose statin, which I will do today. Our goal LDL will be less than 70. Long-term with cerebral angiopathy, we need to tightly control her blood pressure and minimize any risk factors. She is a non-smoker, nondiabetic. I expect that she will make a nice recovery. Given the number and location of the strokes, I am surprised that she does not have more symptomatology. She seems to be doing better. In long- term, we will need to follow her for her mild cognitive impairment versus dementia, which I strongly suspect. I would not start her on any medications at this point. The plan will be to do a stroke workup here, schedule her for an outpatient long-term monitor to rule out atrial fibrillation, and continue her aspirin for the time being. I would not treat with dual antiplatelet therapy. She should be scheduled in my clinic in 8 weeks after discharge and she can see Milton Toney, the nurse practitioner. I will continue to follow her and make further recommendations as necessary. Thank you for the opportunity to participate in her care. [id number]/[facility] #: [id number] ROHINI
[2019-06-18] MEDS: Aspirin 81 mg CHEW TAB* 81 MG TAB.CHEW PO SCH (09:11)
--- NOTE | 2019-06-18 10:49 | PN ---
Subjective Date of Service: 06/18/19 Interval History: Pt is feeling well today. She states today she feels dizzy but then states she has not ambulated much. Her family has many questions regarding the dx of cardioembolic CVA and amyloid angiopathy. Objective Active Medications: Acetaminophen (Tylenol Tab*) 650 mg PO Q6H PRN PRN Reason: MILD PAIN or TEMP > 100.4 Aspirin (Aspirin 81 Mg Chew Tab*) 81 mg PO DAILY [facility] Last Admin: 06/18/19 09:11 Dose: 81 mg Atorvastatin Calcium (Lipitor*) 10 mg PO 1700 [facility] Last Admin: 06/17/19 17:56 Dose: 10 mg Ondansetron HCl (Zofran Inj*) 4 mg IV Q6H PRN PRN Reason: NAUSEA Vital Signs - 8 hr 06/18/19 06/18/19 06/18/19 03:15 07:44 08:00 Temperature 98.5 F 99.4 F Pulse Rate 64 58 Respiratory 18 16 16 Rate Blood Pressure 146/59 124/69 (mmHg) O2 Sat by Pulse 97 99 Oximetry Oxygen Devices in Use Now: None Appearance: Elderly female sitting up in bed, NAD Eyes: No Scleral Icterus Ears/Nose/Mouth/Throat: Mucous Membranes Moist Respiratory: Symmetrical Chest Expansion and Respiratory Effort, Clear to Auscultation Cardiovascular: NL Sounds; No Murmurs; No JVD, RRR, No Edema Abdominal: NL Sounds; No Tenderness; No Distention Extremities: No Clubbing, Cyanosis Skin: No Nodules or Sclerosis Neurological: - - alert, mildly confused Result Diagrams: 06/17/19 05:15 06/17/19 05:15 Additional Lab and Data: Lab Results 06/16/19 Range/Units 17:09 WBC 5.8 (3.5-10.8) 10^3/uL RBC 4.91 H (3.70-4.87) 10^6 /uL Hgb 15.1 (12.0-16.0) g/dL Hct 46 (35-47) % MCV 93 (80-97) fL MCH 31 (27-31) pg MCHC 33 (31-36) g/dL RDW 13 (10-15) % Plt Count 219 (150-450) 10^3/uL MPV 8.6 (7.4-10.4) fL Neut % (Auto) 76.9 % Lymph % (Auto) 13.3 % [place] % (Auto) 8.0 % Eos % (Auto) 1.3 % Baso % (Auto) 0.5 % Absolute Neuts (auto) 4.5 (1.5-7.7) 10^3/ul Absolute Lymphs (auto) 0.8 L (1.0-4.8) 10^3/ul Absolute Monos (auto) 0.5 (0-0.8) 10^3/ul Absolute Eos (auto) 0.1 (0-0.6) 10^3/ul Absolute Basos (auto) 0.0 (0-0.2) 10^3/ul Absolute Nucleated RBC 0.0 10^3/ul Nucleated RBC % 0.1 Microbiology and Other Data: Microbiology 06/16/19 18:35 Urine Culture - Final Urine Assess/Plan/Problems-Billing Ms Avelar is a 73 yo F who has a h/o HTN and mild cognitive impairment who presented to the ER with c/o dizziness and malaise x 3 days and was admitted for TIA work up. - Patient Problems (1) CVA (cerebral vascular accident) Current Visit: Yes Status: Acute Code(s): I63.9 - CEREBRAL INFARCTION, UNSPECIFIED SNOMED Code(s): 812461138 Comment: Pt has MRI c/w cardioembolic CVA. No DVT seen on dopplers. Continue ASA 81mg and lipitor 10mg daily per Dr. Ramos depsite the additional finding of amyloid angiopathy. She will need ?linq monitor to eval for afib though initiating full anticoagulation for identified afib would be risky. Will get the paitent up and moving today. ?home later today with plans to get outpatient surveillance system monitor. Will need to follow up with Dr. Ramos in 8 weeks. (2) Cerebral amyloid angiopathy Current Visit: Yes Status: Acute Code(s): E85.4 - ORGAN-LIMITED AMYLOIDOSIS ; I68.0 - CEREBRAL AMYLOID ANGIOPATHY SNOMED Code(s): 699129227 Comment: New dx based on MRI findings. Will need to monitor for new neurologic issues especially as pt has now been started on ASA 81mg daily. (3) HTN (hypertension) Current Visit: Yes Status: Acute Code(s): I10 - ESSENTIAL (PRIMARY) HYPERTENSION SNOMED Code(s): 36966558 Comment: BP is under good control on amlodipine 5mg daily. (4) Mild cognitive impairment Current Visit: Yes Status: Acute Code(s): G31.84 - MILD COGNITIVE IMPAIRMENT , SO STATED SNOMED Code(s): 668179852 Comment: Pt at baseline per family. ? MCI vs dementia. Pt will follow with Dr. Ramos. (5) DVT prophylaxis Current Visit: Yes Status: Acute Code(s): Z29.9 - ENCOUNTER FOR PROPHYLACTIC MEASURES, UNSPECIFIED SNOMED Code(s): 511416183 Comment: SCDs (6) Full code status Current Visit: Yes Status: Acute Code(s): Z78.9 - OTHER SPECIFIED HEALTH STATUS SNOMED Code(s): 798241229
[2019-06-18 11:45] VITALS: BP 131/65
--- NOTE | 2019-06-18 12:31 | PN ---
Subjective Date of Service: 06/18/19 Length of Stay: 2 Days Interval History: No issues overnight. Stable. Her dizziness has improved and she is ambulating without difficulty. Wanting to go home. No evidence for A.fib on tele. Objective Active Medications: Acetaminophen (Tylenol Tab*) 650 mg PO Q6H PRN PRN Reason: MILD PAIN or TEMP > 100.4 Aspirin (Aspirin 81 Mg Chew Tab*) 81 mg PO DAILY [facility] Last Admin: 06/18/19 09:11 Dose: 81 mg Atorvastatin Calcium (Lipitor*) 10 mg PO 1700 [facility] Last Admin: 06/17/19 17:56 Dose: 10 mg Ondansetron HCl (Zofran Inj*) 4 mg IV Q6H PRN PRN Reason: NAUSEA Vital Signs 06/17/19 06/17/19 06/17/19 15:39 19:15 20:00 Temperature 98.1 F 98.2 F Pulse Rate 56 56 Respiratory 16 16 16 Rate Blood Pressure 133/59 153/79 (mmHg) O2 Sat by Pulse 98 99 Oximetry 06/17/19 06/18/19 06/18/19 23:15 03:15 07:44 Temperature 98.2 F 98.5 F 99.4 F Pulse Rate 52 64 58 Respiratory 18 18 16 Rate Blood Pressure 131/57 146/59 124/69 (mmHg) O2 Sat by Pulse 98 97 99 Oximetry 06/18/19 06/18/19 08:00 11:40 Temperature 98.2 F Pulse Rate 60 Respiratory 16 16 Rate Blood Pressure 131/65 (mmHg) O2 Sat by Pulse 98 Oximetry Intake and Output Last 24 Hours 06/16/19 06/17/19 06/18/19 06/19/19 06:59 06:59 06:59 06:59 Intake Total 120 480 240 Output Total 0 Balance 120 480 240 Weight 129 lb 4.8 oz 129 lb Intake: Oral 120 480 240 Output: Urine 0 Oxygen Devices in Use Now: None Neurology Exam: General: Well nourished, well developed, and in no acute distress HEENT: Normocephalic/atraumatic, sclera anicteric, mucous membranes moist Neck: Supple Chest: Clear to auscultation bilaterally Cardiovascular: Regular rate and rhythm without murmurs, rubs, gallops Abdomen: Soft, non-tender/non-distended Extremities: No clubbing, cyanosis, or edema Neurological Findings: Awake, alert, and oriented to person only Speech: fluent without dysarthria, repetition intact Cranial Nerve: PERRL, EOM intact, VFF, no nystagmus, face symmetric bilaterally , facial sensation intact, hearing intact to finger rub bilaterally, palate elevates symmetrically, tongue midline Motor: 5/5 throughout, proximal and distal extremities x4 tone/bulk normal, no drift Sensation: intact to LT/PP bilaterally upper and lower extremities Finger to nose, rapid alternating movements intact without tremor, no resting tremor Result Diagrams: 06/17/19 05:15 06/17/19 05:15 Additional Lab and Data: Lab Results 06/16/19 Range/Units 17:09 WBC 5.8 (3.5-10.8) 10^3/uL RBC 4.91 H (3.70-4.87) 10^6 /uL Hgb 15.1 (12.0-16.0) g/dL Hct 46 (35-47) % MCV 93 (80-97) fL MCH 31 (27-31) pg MCHC 33 (31-36) g/dL RDW 13 (10-15) % Plt Count 219 (150-450) 10^3/uL MPV 8.6 (7.4-10.4) fL Neut % (Auto) 76.9 % Lymph % (Auto) 13.3 % [place]anan % (Auto) 8.0 % Eos % (Auto) 1.3 % Baso % (Auto) 0.5 % Absolute Neuts (auto) 4.5 (1.5-7.7) 10^3/ul Absolute Lymphs (auto) 0.8 L (1.0-4.8) 10^3/ul Absolute Monos (auto) 0.5 (0-0.8) 10^3/ul Absolute Eos (auto) 0.1 (0-0.6) 10^3/ul Absolute Basos (auto) 0.0 (0-0.2) 10^3/ul Absolute Nucleated RBC 0.0 10^3/ul Nucleated RBC % 0.1 Microbiology and Other Data: Microbiology 06/16/19 18:35 Urine Culture - Final Urine Assessment/Plan Ms. Avelar is 73-year-old female with a history of reported mild cognitive impairment versus dementia; a history of borderline hypertension, not on any medications; a history of an abnormal heart rhythm, reportedly no atrial fibrillation in the past, left bundle-branch block, who presents to the hospital with acute onset of dizziness and confusion, worse than baseline, on Thursday and symptoms did not improve dramatically, came to the hospital yesterday for further evaluation. Subsequent CT scan showed some chronic changes and microvascular changes, but MRI of the brain shows multiple acute to subacute infarcts consistent with an embolic phenomenon. She also has what appears to be amyloid angiopathy. Stroke: --At this point I think benefits of short term asa outweigh risks of hemorrhage related to amyloid. Review of literature seems to support the idea of short term treatment (up to a year with her extensive disease) while I may not treat that long. No DAPT. No evidence yet for A.fib but will plan for 30 day vs. Lynx monitor as outpatient. Should she have evidence of A.fib, we will need to have another discussion with the family about anticoagulation but I would lean strongly against. I did discuss the risks and benefits of bleeding vs. new stroke on and off of ASA and they agree with the plan. Continues secondary stroke risk factor reduction. HTN control in the setting of amyloid is very important. I have decided to hold on statin as there is some competing evidence of bleeding risk on statin and I do not want to increase her risk further. We did discuss diet control and she can follow up with PCP for continued monitoring. Memory: Suspect longstanding Alzheimer's which has acutely worsened secondary to stroke. Will plan for outpatient workup. No meds at this point The family knows to call 911 or come to ER immediately with any new stroke like symptoms. I will plan to follow up in my clinic in 8 weeks. Thank you for the opportunity to participate in her care.
--- NOTE | 2019-06-18 21:57 | DS ---
CC: Dr. Dominguez* DISCHARGE SUMMARY: DATE OF ADMISSION: 06/16/19 DATE OF DISCHARGE: 06/18/19 PRIMARY CARE PROVIDER: Dr. Dominguez PRINCIPAL DIAGNOSES: 1. 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 2. Amyloid angiopathy. SECONDARY DIAGNOSES: 1. Probable dementia. 2. Hypertension. DISCHARGE MEDICATIONS: 1. Ambien 5 to 10 mg p.o. q.h.s. 2. Lipitor 10 mg p.o. q.h.s. 3. Aspirin 81 mg p.o. daily. HOSPITAL COURSE: Ms. Avelar is a 73-year-old female who presented to the emergency room on 06/16/19 with complaints of dizziness. The dizziness had been ongoing for approximately 3 days prior to admission. Despite not having a focal exam, there was concern for possible TIA. Because of this, CT of the brain was performed. This revealed no acute intracranial pathology. MRI of the brain was, however, performed due to the suspicion. The patient was found to have mixed chronicity supra and infratentorial infarcts with the pattern suggestive of a cardioembolic etiology. There is no mass effect or acute hemorrhage noted. The patient was also noted to have punctate chronic microangiopathic findings predominant in the parietal and occipital regions bilaterally. This was felt to be consistent with cerebral amyloid angiopathy. The patient was also found to have moderate chronic small vessel ischemic disease. Given the findings of the MRI, a neurology consultation was requested. Dr. Ramos met with the patient and her . Ultimately, it was decided to treat the patient with aspirin 81 mg p.o. daily despite the concern for the underlying cerebral amyloid angiopathy. The patient also underwent transthoracic echocardiogram that revealed a PFO. Because of this, venous Dopplers were obtained. These were negative for DVT. The patient also underwent CTA of the head and neck, which did not reveal any carotid or vertebral artery stenosis or occlusion and normal variation without pathologic finding of the dominant intracranial arterial vasculature. No large vessel occlusion or stenosis was seen. The patient had improvement in her overall sense of dizziness. Her memory is felt to be worse than previous. It is felt that this is likely related to her stroke. There was no evidence of atrial fibrillation during the course of the hospitalization, however, the patient would benefit from either a 30-day Holter of a Linq monitor. However, if atrial fibrillation is identified, beginning anticoagulation is felt to be a risky undertaking given the likely amyloid angiopathy. On the day of discharge, the patient is awake and alert. She was sitting up in bed. She was mildly confused FOLLOWUP CONCERNS: The patient is being discharged home today, 06/18/19. Activity level is as tolerated. Diet is regular. Condition on discharge is stable. The patient is to follow up with Dr. Ramos or Milton Toney NP in approximately 8 weeks, with Dr. Dominguez in the next 4 to 7 days. TIME SPENT: Thirty five minutes was spent discharging this patient. [id number]/CPS #: [id number] [id number]
[2019-06-20 15:41] LABS: Anaplasma phagocytophilium <1:64 titer (<1:64); Ehrlichia chaffeensis IgG AB <1:64 titer (<1:64); Lyme Disease Serology Negative (Negative)
== END 2019-06-18 13:49 | disposition home health service (06) | DRG 65 ==
LOC: ED 15:14 → MEDTELE 19:19 → OBSVTOIN 06-17 17:00
PROVIDERS: ADMIT Internal Medicine; ATTEND Hospitalist
DX: I63.10 Cerebral infarction due to embolism of unspecified precerebral artery (principal); E85.4 Organ-limited amyloidosis; I68.0 Cerebral amyloid angiopathy; I10 Essential (primary) hypertension; G30.9 Alzheimer's disease, unspecified; F02.80 Dementia in other diseases classified elsewhere, unspecified severity, without behavioral disturbance, psychotic disturbance, mood disturbance, and anxiety; R29.810 Facial weakness; I44.7 Left bundle-branch block, unspecified; Z88.8 Allergy status to other drugs, medicaments and biological substances; Z82.49 Family history of ischemic heart disease and other diseases of the circulatory system; Z80.9 Family history of malignant neoplasm, unspecified; Z83.2 Family history of diseases of the blood and blood-forming organs and certain disorders involving the immune mechanism
CPT/HCPCS: 36415; 70450; 70496; 70498; 70551; 71046; 80048; 80053; 80061; 81003; 81015; 83036; 83605; 83735; 84443; 84484; 85025; 86140; 86618; 86666; 86753; 87086; 93005; 93306; 93970; 99285; A9270-GY; G8978-GP-CK; G8979-GP-CI; J1650; Q9967

== ENCOUNTER 2023-04-30 13:52 | Inpatient (IN) ==
[2023-04-30] MEDS ORDERED: Lactated Ringers 1000 ml BAG 1,000 ML IV ONE ×2 (14:55→20:37)
[2023-04-30 15:45] LABS: ABS Eosinophils 0.1 10^3/uL (0.0-0.5); ABS Lymphocytes 0.6 10^3/uL (1.0-4.8); ABS Monocytes 0.7 10^3/uL (0.0-0.9); ABS Neutrophils 8.6 10^3/uL (1.5-7.6); ABS Nucleated RBC 0.05 10^3/ul; Eosinophil % 0.7 %; Hematocrit 45.6 % (35-45); Hemoglobin 15.4 g/dL (11.5-14.3); Mean Corpuscular Hgb Conc 33.7 g/dL (31-36); Mean Platelet Volume 9.8 fL (7.5-11.2); Nucleated Red Blood Cells % 0.5 /100 WBC (0.0-0.4); Platelet Count 181 10^3/uL (150-450); Red Blood Count 4.96 10^6/uL (3.63-4.92); Red Cell Distribution Width 14.1 % (12-17)
[2023-04-30 16:29] LABS: High Sensitivity Troponin 1 Hr 85 pg/mL (<15)
[2023-04-30 16:38] LABS: Albumin 4.2 g/dL (3.2-5.2); Albumin/Globulin Ratio 1.1 (1-3); Calcium 10.1 mg/dL (8.6-10.3); Creatinine, Serum 0.93 mg/dL (0.51-0.95); Globulin 3.7 g/dL (2-4); Magnesium 2.2 mg/dL (1.9-2.7); Potassium 3.7 mmol/L (3.5-5.0); Total Bilirubin 3.3 mg/dL (0.2-1.0); Total Protein 7.9 g/dL (6.4-8.9); eGFR CKD-EPI 62.9 (>60)
[2023-04-30 19:23] LABS: Direct Bilirubin 0.2 mg/dL (0.03-0.18); Indirect Bilirubin 3.1 mg/dL (0.3-1.0)
[2023-04-30 21:37] LABS: Vitamin D Total 25(OH) 16.7 ng/mL (20-50)
[2023-04-30 22:28] LABS: TSH Ultra Thyroid Stim Horm 1.76 mcIU/mL (0.34-5.60)
[2023-04-30] MEDS ORDERED: Cyanocobalamin INJ 1,000 MCG/ML VIAL 1 ML VIAL IM ONE (22:44)
[2023-05-01 04:03] LABS: Urine Appearance Clear; Urine Bilirubin Negative (Negative); Urine Blood Negative (Negative); Urine Color Yellow; Urine Glucose Negative (Negative); Urine Ketones 1+ (Negative); Urine Nitrite Negative (Negative); Urine Protein 1+(30 mg/dL) (Negative); Urine Specific Gravity 1.015 (1.002-1.030); Urine Urobilinogen Negative (Negative)
[2023-05-01 04:13] LABS: Urine Bacteria 1+ (Absent); Urine Red Blood Cell 1+(3-5/hpf) (Absent); Urine Squamous Epithelial Cell Present (Absent); Urine White Blood Cell Trace(0-5/hpf) (Absent)
[2023-05-01 07:22] LABS: Hematocrit 41.2 % (35-45); Hemoglobin 13.8 g/dL (11.5-14.3); Mean Corpuscular Hemoglobin 30.8 pg (27-33); Mean Corpuscular Hgb Conc 33.6 g/dL (31-36); Mean Corpuscular Volume 91.7 fL (80-97); Mean Platelet Volume 9.3 fL (7.5-11.2); Platelet Count 155 10^3/uL (150-450); Red Blood Count 4.49 10^6/uL (3.63-4.92); Red Cell Distribution Width 13.8 % (12-17); White Blood Count 9.8 10^3/uL (3.8-11.8)
[2023-05-01 07:41] LABS: Calcium 8.7 mg/dL (8.6-10.3); Creatinine, Serum 0.7 mg/dL (0.51-0.95); Magnesium 1.9 mg/dL (1.9-2.7); Potassium 3.4 mmol/L (3.5-5.0); eGFR CKD-EPI 88.5 (>60)
[2023-05-01] MEDS ORDERED: KCL 20 MEQ/100 ML IVPREMIX 20 MEQ/100 ML BAG IV ONE (07:42)
[2023-05-01 10:37] LABS: Activated Partial Thrombo Time 31.1 seconds (26.0-38.0); INR 1.21 (0.88-1.18)
[2023-05-01 12:03] LABS: High Sensitivity Troponin 1 Hr 68 pg/mL (<15)
[2023-05-01] MEDS ORDERED: ceFAZolin 2 GM in NS PREMIX 2 GM/100 ML BAG IVPB ONE (17:09)
[2023-05-01] MEDS ORDERED: fentaNYL 100 mcg/2 ml 50 MCG/ML VIAL ONE ×2 (18:09→20:11)
[2023-05-01] MEDS ORDERED: Propofol 10 MG/ML 20 ML BTL ONE (18:11)
[2023-05-01] MEDS ORDERED: Lidocaine 2% PF 5 ML VIAL ONE (18:11)
[2023-05-01] MEDS ORDERED: Lidocaine 1% w EPI 1:200,000 SDV 30 ML VIAL ONE (18:27)
[2023-05-01] MEDS ORDERED: Ondansetron 4 mg VIAL 2 MG/ML 2 ml VIAL IV PRN (18:40)
[2023-05-01] MEDS ORDERED: Naloxone 0.4 mg VIAL 0.4 mg/ml 1 ml VIAL IV PRN (18:40)
[2023-05-01] MEDS ORDERED: Ondansetron 4 mg VIAL 2 MG/ML 2 ml VIAL ONE (19:43)
[2023-05-01] MEDS: fentaNYL 100 mcg/2 ml 50 MCG/ML VIAL IV PRN ×2 (20:13→20:22)
[2023-05-01] MEDS: Acetaminophen IV 1 GM/100ML 1,000 MG/100 ML BAG IV PRN (23:18)
[2023-05-02] MEDS: ceFAZolin 1 GM Q8H (ADVAN) IVPB SCH ×3 (03:53→19:45)
[2023-05-02 07:47] LABS: Hemoglobin 13.1 g/dL (11.5-14.3); Mean Corpuscular Hemoglobin 30.9 pg (27-33); Mean Corpuscular Hgb Conc 33.6 g/dL (31-36); Platelet Count 157 10^3/uL (150-450); Red Blood Count 4.24 10^6/uL (3.63-4.92); Red Cell Distribution Width 14.1 % (12-17); White Blood Count 7.8 10^3/uL (3.8-11.8)
[2023-05-02 08:03] LABS: Calcium 8.6 mg/dL (8.6-10.3); Creatinine, Serum 0.85 mg/dL (0.51-0.95); Potassium 3.7 mmol/L (3.5-5.0); eGFR CKD-EPI 70.1 (>60)
[2023-05-02] MEDS: Cholecalciferol (VIT D3) 1,000 unit TAB PO SCH (09:00)
[2023-05-02] MEDS: Morphine 2 MG/ML SYRINGE IV PRN (16:31)
[2023-05-03] MEDS: Morphine 2 MG/ML SYRINGE IV PRN (01:47)
[2023-05-03 06:57] LABS: ABS Basophils 0.1 10^3/uL (0.0-0.1); ABS Eosinophils 0.4 10^3/uL (0.0-0.5); ABS Lymphocytes 0.7 10^3/uL (1.0-4.8); ABS Monocytes 0.7 10^3/uL (0.0-0.9); ABS Neutrophils 5.1 10^3/uL (1.5-7.6); ABS Nucleated RBC 0.01 10^3/ul; Eosinophil % 6.4 %; Hematocrit 38.7 % (35-45); Hemoglobin 13.1 g/dL (11.5-14.3); Lymphocyte % 10.2 %; Mean Corpuscular Hemoglobin 31.1 pg (27-33); Mean Corpuscular Hgb Conc 33.8 g/dL (31-36); Mean Corpuscular Volume 92.1 fL (80-97); Mean Platelet Volume 9.1 fL (7.5-11.2); Nucleated Red Blood Cells % 0.1 /100 WBC (0.0-0.4); Platelet Count 174 10^3/uL (150-450); Red Cell Distribution Width 14.2 % (12-17)
[2023-05-03 07:04] LABS: Albumin 3.1 g/dL (3.2-5.2); Calcium 8.3 mg/dL (8.6-10.3); Potassium 3.6 mmol/L (3.5-5.0); Total Bilirubin 0.8 mg/dL (0.2-1.0)
[2023-05-03 07:10] LABS: Albumin/Globulin Ratio 1.2 (1-3); Creatinine, Serum 0.64 mg/dL (0.51-0.95); Globulin 2.6 g/dL (2-4); Total Protein 5.7 g/dL (6.4-8.9); eGFR CKD-EPI 90.4 (>60)
[2023-05-03] MEDS: Cholecalciferol (VIT D3) 1,000 unit TAB PO SCH (08:35)
[2023-05-03] MEDS: Acetaminophen IV 1 GM/100ML 1,000 MG/100 ML BAG IV PRN ×2 (08:45→21:08)
[2023-05-04 08:06] LABS: ABS Basophils 0.1 10^3/uL (0.0-0.1); ABS Eosinophils 0.4 10^3/uL (0.0-0.5); ABS Lymphocytes 0.8 10^3/uL (1.0-4.8); ABS Monocytes 0.7 10^3/uL (0.0-0.9); ABS Neutrophils 5.5 10^3/uL (1.5-7.6); ABS Nucleated RBC 0.01 10^3/ul; Eosinophil % 5.3 %; Hematocrit 38.3 % (35-45); Hemoglobin 12.9 g/dL (11.5-14.3); Mean Corpuscular Hemoglobin 30.8 pg (27-33); Mean Corpuscular Hgb Conc 33.8 g/dL (31-36); Mean Corpuscular Volume 91.3 fL (80-97); Mean Platelet Volume 8.9 fL (7.5-11.2); Nucleated Red Blood Cells % 0.1 /100 WBC (0.0-0.4); Platelet Count 200 10^3/uL (150-450); Red Blood Count 4.19 10^6/uL (3.63-4.92); White Blood Count 7.4 10^3/uL (3.8-11.8)
[2023-05-04 08:21] LABS: Calcium 8.7 mg/dL (8.6-10.3); Creatinine, Serum 0.68 mg/dL (0.51-0.95); Potassium 3.7 mmol/L (3.5-5.0); eGFR CKD-EPI 89.1 (>60)
[2023-05-04] MEDS: Cholecalciferol (VIT D3) 1,000 unit TAB PO SCH (08:43)
[2023-05-04] MEDS: Acetaminophen IV 1 GM/100ML 1,000 MG/100 ML BAG IV PRN (08:43)
[2023-05-04 10:41] VITALS: BP 149/76
== END 2023-05-04 15:19 | DRG 481 ==
LOC: ED 13:52 → EDHOLD 18:51 → SUATTDRO 18:51 → MED 20:41 → SSU 05-01 22:40
PROVIDERS: ADMIT Internal Medicine; ATTEND Internal Medicine